=== PATIENT | female | born 1940 | race Caucasian/White ===

== ENCOUNTER → 2017-09-07 | Outpatient (CLI) | payer MEDICARE ==
[~2017-09-07] MED LIST: ALEN35TA6 PO; ASPI-515 PO; ATOR-2 PO; CEFD300C37 PO; DICL100G19 TP; DICL50TA; DOXE10CA PO; GABA-826; GABA300C10; HYDR12.53; LISI-170; LISI40TA PO; METH32TA PO; METO-93; METR500T PO; OMEP20CA9; OXYC15TA PO; TRAM100T2; TRAM50TA2 PO; TRIA0.2576; TRIA0.2576 PO
== END | disposition home or self-care (01) ==
LOC: CFH 10:40
PROVIDERS: ATTEND Obstetrics & Gynecology
DX: Z12.31 Encounter for screening mammogram for malignant neoplasm of breast (principal)
CPT/HCPCS: 77063; G0202

== ENCOUNTER → 2018-09-09 | Outpatient (CLI) | payer MEDICARE ==
[~2018-09-09] MED LIST changes: -TRAM100T2; +TRAM100T33
== END | disposition home or self-care (01) ==
LOC: LAB 10:47
PROVIDERS: ATTEND Nurse Practitioner
DX: M19.011 Primary osteoarthritis, right shoulder (principal); M19.012 Primary osteoarthritis, left shoulder

== ENCOUNTER 2019-01-17 11:30 | Inpatient (IN) | payer MEDICARE ==
[~2019-01-17] VITALS: Ht 157.5 cm; Wt 81.7 kg
[~2019-01-17 11:30] MED LIST changes: -GABA300C10; +GABA300C10 PO; +HYDR12.517; +HYDR12.517 PO; -HYDR12.53; -OMEP20CA9; +OMEP20CA9 PO
[2019-01-17] MEDS ORDERED: SODIUM CHLORIDE 0.9% 1,000ML IVBOLUS ONE (12:00)
[2019-01-17] MEDS ORDERED: SODIUM CHLORIDE FLUSH 10ML SYR IVF ONE (12:00)
[2019-01-17] MEDS ORDERED: SODIUM CHLORIDE 0.9%, 500ML IVBOLUS ONE (12:30)
[2019-01-17 12:40] LABS: BASOPHILS % (AUTO) 0 % (0-1); EOSINOPHILS # (AUTO) 0.03 x10^3/uL (0-0.4); EOSINOPHILS % (AUTO) 0 % (1-7); LYMPHOCYTES % (AUTO) 7 % (22-44); MD NO; MEAN CORPUSCULAR HEMOGLOBIN 31.2 pg (27.0-34.8); MEAN CORPUSCULAR HGB CONC 33.7 g/dL (32.4-35.8); MEAN CORPUSCULAR VOLUME 92.5 fL (80-100); MEAN PLATELET VOLUME 8.2 fL (7.4-10.4); MONOCYTES # (AUTO) 0.53 x10^3/uL (0.2-0.8); MONOCYTES % (AUTO) 7 % (2-9); NEUTROPHILS % (AUTO) 86 % (42-75); PLATELET COUNT 191 x10^3/uL (130-400); RED BLOOD COUNT 4.38 x10^6/uL (3.82-5.3); RED CELL DISTRIBUTION WIDTH 13.6 % (9.6-15.2)
--- NOTE | 2019-01-17 12:44 | NUR ---
LAB AT FOR BLOOD CULTURE DRAW
[2019-01-17 12:52] LABS: ALBUMIN 3.3 g/dL (3.4-5.0); ANION GAP 5 mmol/L (5-15); CALCIUM 8.9 mg/dL (8.5-10.1); CHLORIDE 107 mmol/L (98-107)
[2019-01-17 12:54] LABS: MICROSCOPIC AUTO
[2019-01-17 12:55] LABS: ALANINE AMINOTRANSFERASE 33 U/L (12-78); ALKALINE PHOSPHATASE 84 U/L (45-117); BILIRUBIN,TOTAL 0.6 mg/dL (0.2-1.0); CREATININE 0.77 mg/dL (0.55-1.02); TOTAL PROTEIN 6.8 g/dL (6.4-8.2)
[2019-01-17 12:57] LABS: CULTURE INDICATED? YES
--- NOTE | 2019-01-17 13:03 | NUR ---
PER REPORT, EMS GAVE PT 1000 MG TYLENOL PO AND 4 MG ZOFRAN.
[2019-01-17 13:18] LABS: RAPID INFLUENZA A Negative (Negative); RAPID INFLUENZA B Negative (Negative)
--- NOTE | 2019-01-17 13:19 | NUR ---
AT EXPLAINING RESULTS
[2019-01-17] MEDS ORDERED: CEFTRIAXONE PMX 1GM/50ML 50 ML IV ONE (13:30)
[2019-01-17] MEDS ORDERED: CEFTRIAXONE PMX 1GM/50ML 50 ML ONE (13:32)
[2019-01-17] MEDS ORDERED: SODIUM CHLORIDE 0.9% 1,000 ML IV SCH (15:40)
[2019-01-17] MEDS ORDERED: GUAIFENESIN/DM 200-20MG, 10ML UDC PO PRN (16:00)
[2019-01-17] MEDS ORDERED: hydrALAzine 20 MG/ML, 1ML IVPush PRN (16:00)
[2019-01-17] MEDS ORDERED: POTASSIUM CHLORIDE 20 MEQ TAB.ER.PRT PO ONE (16:00)
[2019-01-17] MEDS ORDERED: ACETAMINOPHEN 325 MG TABLET PO PRN (16:00)
[2019-01-17] MEDS ORDERED: ONDANSETRON 2MG/ML, 2ML IVPush PRN (16:00)
[2019-01-17] MEDS: GABAPENTIN 300 MG CAPSULE PO SCH ×2 (17:26→20:59)
[2019-01-17] MEDS: ENOXAPARIN 40 MG/0.4 ML SQ SCH (17:30)
[2019-01-17 18:27] VITALS: BP 109/70
[2019-01-17 20:11] VITALS: BP 95/59
[2019-01-17] MEDS ORDERED: HYDR-3240 PO (20:25)
[2019-01-17] MEDS: HYDROcodone/APAP 5/325 TABLET PO PRN (20:59)
[2019-01-17] MEDS ORDERED: DOCUSATE 100 MG CAPSULE PO PRN (21:00)
[2019-01-17] MEDS ORDERED: ZOLPIDEM 5MG TABLET PO PRN (21:00)
[2019-01-17] MEDS: SODIUM CHLORIDE NASAL SPRAY 45ML BOTTLE NAS PRN (21:38)
[2019-01-18] MEDS: HYDROcodone/APAP 5/325 TABLET PO PRN ×5 (01:31→21:26)
[2019-01-18] MEDS: SODIUM CHLORIDE NASAL SPRAY 45ML BOTTLE NAS PRN (01:32)
[2019-01-18 01:40] VITALS: BP 115/68
[2019-01-18 05:04] LABS: ANION GAP 3 mmol/L (5-15); CALCIUM 8.2 mg/dL (8.5-10.1); CHLORIDE 112 mmol/L (98-107)
[2019-01-18 05:06] LABS: CREATININE 0.57 mg/dL (0.55-1.02)
[2019-01-18 05:12] LABS: BASOPHILS # (AUTO) 0.02 x10^3/uL (0-0.1); BASOPHILS % (AUTO) 0 % (0-1); EOSINOPHILS # (AUTO) 0.03 x10^3/uL (0-0.4); EOSINOPHILS % (AUTO) 0 % (1-7); LYMPHOCYTES # (AUTO) 1.38 x10^3/uL (1-3.4); LYMPHOCYTES % (AUTO) 22 % (22-44); MD NO; MEAN CORPUSCULAR HGB CONC 33.6 g/dL (32.4-35.8); MEAN CORPUSCULAR VOLUME 92.3 fL (80-100); MEAN PLATELET VOLUME 8.7 fL (7.4-10.4); MONOCYTES # (AUTO) 0.48 x10^3/uL (0.2-0.8); MONOCYTES % (AUTO) 8 % (2-9); NEUTROPHILS # (AUTO) 4.34 x10^3/uL (1.8-6.8); NEUTROPHILS % (AUTO) 69 % (42-75); PLATELET COUNT 177 x10^3/uL (130-400); RED BLOOD COUNT 3.88 x10^6/uL (3.82-5.3); RED CELL DISTRIBUTION WIDTH 13.8 % (9.6-15.2)
[2019-01-18] MEDS: OMEPRAZOLE 20 MG CAPSULE.DR PO SCH (05:35)
[2019-01-18 07:39] VITALS: BP 110/68
[2019-01-18] MEDS: GABAPENTIN 300 MG CAPSULE PO SCH ×3 (09:06→21:26)
[2019-01-18] MEDS: ATORVASTATIN 80 MG TABLET PO SCH (09:06)
[2019-01-18] MEDS: HYDROCHLOROTHIAZIDE 12.5 MG CAPSULE PO SCH (09:06)
[2019-01-18] MEDS: ASPIRIN 81 MG TABLET EC PO SCH (09:07)
[2019-01-18] MEDS: LISINOPRIL 20 MG TABLET PO SCH (09:07)
[2019-01-18 12:20] VITALS: BP 122/79
[2019-01-18] MEDS: CEFTRIAXONE PMX 1GM/50ML 50 ML IV SCH (12:56)
[2019-01-18] MEDS ORDERED: SODIUM CHLORIDE 0.9% 1,000 ML IV SCH (15:40)
[2019-01-18] MEDS: ENOXAPARIN 40 MG/0.4 ML SQ SCH (17:06)
[2019-01-18 19:34] VITALS: BP 126/72
[2019-01-18] MEDS: CALCIUM CARBONATE 500 MG TAB.CHEW PO PRN (21:26)
[2019-01-19 00:25] VITALS: BP 147/76
[2019-01-19] MEDS: HYDROcodone/APAP 5/325 TABLET PO PRN ×2 (06:31→14:05)
[2019-01-19] MEDS: OMEPRAZOLE 20 MG CAPSULE.DR PO SCH (06:31)
[2019-01-19 06:58] VITALS: BP 159/80
[2019-01-19] MEDS: ASPIRIN 81 MG TABLET EC PO SCH (10:01)
[2019-01-19] MEDS: GABAPENTIN 300 MG CAPSULE PO SCH (10:01)
[2019-01-19] MEDS: ATORVASTATIN 80 MG TABLET PO SCH (10:01)
[2019-01-19] MEDS: HYDROCHLOROTHIAZIDE 12.5 MG CAPSULE PO SCH (10:02)
[2019-01-19] MEDS: CALCIUM CARBONATE 500 MG TAB.CHEW PO PRN (10:02)
[2019-01-19] MEDS: LISINOPRIL 20 MG TABLET PO SCH (10:02)
[2019-01-19] MEDS ORDERED: AMPI500C2 PO (11:37)
[2019-01-19] MEDS: CEFTRIAXONE PMX 1GM/50ML 50 ML IV SCH (13:30)
[2019-01-19 13:34] VITALS: BP 130/76
== END 2019-01-19 13:40 | disposition home or self-care (01) | DRG 871 ==
LOC: ED 12:29 → EDIP 13:07 → 3NW 13:45
PROVIDERS: ADMIT Internal Medicine; ATTEND Internal Medicine
DX: A41.9 Sepsis, unspecified organism (principal); G93.41 Metabolic encephalopathy; N39.0 Urinary tract infection, site not specified; E87.2 Acidosis; B96.20 Unspecified Escherichia coli [E. coli] as the cause of diseases classified elsewhere; E78.5 Hyperlipidemia, unspecified; E87.6 Hypokalemia; F41.1 Generalized anxiety disorder; G89.29 Other chronic pain; I10 Essential (primary) hypertension; K21.9 Gastro-esophageal reflux disease without esophagitis; M19.90 Unspecified osteoarthritis, unspecified site; R65.20 Severe sepsis without septic shock; Z88.9 Allergy status to unspecified drugs, medicaments and biological substances; Z90.710 Acquired absence of both cervix and uterus; Z96.653 Presence of artificial knee joint, bilateral
CPT/HCPCS: 36415; 71045; 80048; 80053; 81001; 83605; 83690; 83735; 84145; 85025; 87040; 87077; 87086; 87186; 87400; G0378; J0696; J1650; J7030; J7040

== ENCOUNTER 2019-01-27 06:26 | Inpatient (IN) | payer MEDICARE ==
[~2019-01-27] VITALS: Ht 149.9 cm; Wt 82.0 kg
[~2019-01-27 06:26] MED LIST changes: +AMPI500C2 PO; +HYDR-3240 PO
[2019-01-27] MEDS ORDERED: SODIUM CHLORIDE FLUSH 10ML SYR IVF ONE (07:00)
--- NOTE | 2019-01-27 07:00 | NUR ---
BEDSIDE REPORT FROM NOHELIA RN, PT BIB [facility] FOR N/V, GIVEN ZOFRAN 8MG AND 500CC NS. STRAIGHT CATH UA SENT. PT RESTING IN GURNEY WITH FAMILY AT BEDSIDE, PT ON BEDPAN. CALL LIGHT WITHIN REACH
[2019-01-27 07:24] LABS: BASOPHILS # (AUTO) 0.01 x10^3/uL (0-0.1); BASOPHILS % (AUTO) 0 % (0-1); EOSINOPHILS # (AUTO) 0.07 x10^3/uL (0-0.4); EOSINOPHILS % (AUTO) 1 % (1-7); LYMPHOCYTES # (AUTO) 0.55 x10^3/uL (1-3.4); LYMPHOCYTES % (AUTO) 5 % (22-44); MD NO; MEAN CORPUSCULAR HEMOGLOBIN 30.6 pg (27.0-34.8); MEAN CORPUSCULAR HGB CONC 33.5 g/dL (32.4-35.8); MEAN CORPUSCULAR VOLUME 91.4 fL (80-100); MEAN PLATELET VOLUME 9.1 fL (7.4-10.4); MONOCYTES # (AUTO) 0.26 x10^3/uL (0.2-0.8); MONOCYTES % (AUTO) 2 % (2-9); NEUTROPHILS # (AUTO) 9.86 x10^3/uL (1.8-6.8); NEUTROPHILS % (AUTO) 92 % (42-75); PLATELET COUNT 210 x10^3/uL (130-400); RED BLOOD COUNT 4.65 x10^6/uL (3.82-5.3); RED CELL DISTRIBUTION WIDTH 13.2 % (9.6-15.2)
[2019-01-27 07:25] LABS: MICROSCOPIC NOT IND
[2019-01-27 07:26] LABS: ALANINE AMINOTRANSFERASE 36 U/L (12-78); ALBUMIN 3.3 g/dL (3.4-5.0); ANION GAP 6 mmol/L (5-15); CHLORIDE 110 mmol/L (98-107); CREATININE 0.88 mg/dL (0.55-1.02)
[2019-01-27 07:28] LABS: CULTURE INDICATED? NO
[2019-01-27 07:29] LABS: ALKALINE PHOSPHATASE 101 U/L (45-117); BILIRUBIN,TOTAL 0.8 mg/dL (0.2-1.0); TOTAL PROTEIN 6.9 g/dL (6.4-8.2)
[2019-01-27] MEDS ORDERED: ONDANSETRON ODT 4 MG PO ONE (07:30)
[2019-01-27] MEDS ORDERED: ACETAMINOPHEN 500 MG TABLET PO ONE (07:30)
[2019-01-27] MEDS ORDERED: PIPERACILLIN/TAZO/PMX 3.375GM 50 ML ONE (07:41)
[2019-01-27] MEDS ORDERED: ACETAMINOPHEN 500 MG TABLET ONE (07:41)
[2019-01-27] MEDS ORDERED: PIPERACILLIN/TAZO/PMX 3.375GM 50 ML IV ONE (08:00)
--- NOTE | 2019-01-27 08:00 | NUR ---
PT RESTING IN GURNEY WITH FAMILY AT BEDSIDE, ABX GIVEN AFTER BC DRAWN, PT REQUESTING BEDPAN AGAIN. MED REC UPDATED
[2019-01-27] MEDS ORDERED: POTA99TA2 PO (08:35)
[2019-01-27] MEDS ORDERED: PROM25TA10 PO (08:35)
[2019-01-27] MEDS ORDERED: MULT-658 PO (08:35)
[2019-01-27] MEDS ORDERED: CHOL10003 PO (08:35)
[2019-01-27] MEDS ORDERED: CALCIUM PO (08:35)
[2019-01-27] MEDS ORDERED: OMEG-91 PO (08:35)
[2019-01-27] MEDS ORDERED: LUTE20CA2 PO (08:35)
[2019-01-27] MEDS ORDERED: TRAZ50TA66 PO (08:35)
[2019-01-27 08:45] LABS: RAPID INFLUENZA A Negative (Negative); RAPID INFLUENZA B Negative (Negative)
--- NOTE | 2019-01-27 09:05 | NUR ---
PT RESTING IN PATRICIA UPDATED ON POC, AWAITING BED ASSIGNMENT. VSS.
--- NOTE | 2019-01-27 09:57 | NUR ---
REPORT GIVEN TO LISBET LYN
[2019-01-27] MEDS ORDERED: DOCUSATE 100 MG CAPSULE PO PRN (11:00)
[2019-01-27] MEDS ORDERED: ONDANSETRON 2MG/ML, 2ML IVPush PRN (11:00)
[2019-01-27] MEDS ORDERED: BISACODYL 10 MG SUPP PR PRN (11:00)
[2019-01-27] MEDS ORDERED: PROMETHAZINE 25MG TABLET PO PRN (11:00)
[2019-01-27] MEDS ORDERED: ZOLPIDEM 5MG TABLET PO PRN (11:00)
[2019-01-27] MEDS ORDERED: POLYETHYLENE GLYCOL 17 GM PACKET PO PRN (11:00)
[2019-01-27] MEDS ORDERED: LABETALOL 5 MG/ML SYRINGE IVPush PRN ×2 (11:00)
[2019-01-27] MEDS ORDERED: ONDANSETRON ODT 4 MG PO PRN (11:00)
[2019-01-27] MEDS ORDERED: GUAIFENESIN/DM 200-20MG, 10ML UDC PO PRN (11:00)
[2019-01-27] MEDS ORDERED: hydrALAzine 20 MG/ML, 1ML IVPush PRN (11:00)
[2019-01-27 11:41] LABS: FREE T4 (FREE THYROXINE) 1.08 ng/dL (0.76-1.46); THYROID STIMULATING HORMONE 0.426 mIU/L (0.358-3.740)
[2019-01-27 11:55] LABS: HCT (SEDRATE) 42.5 % (34.6-47.8)
[2019-01-27] MEDS: LACTATED RINGERS 1,000 ML IV SCH (11:56)
[2019-01-27] MEDS: ENOXAPARIN 40 MG/0.4 ML SQ SCH (11:58)
[2019-01-27] MEDS ORDERED: PIPERACILLIN/TAZO/PMX 3.375GM 50 ML IV SCH (12:00)
[2019-01-27 13:58] VITALS: BP 98/64
[2019-01-27] MEDS: PIPERACILLIN/TAZO/PMX 3.375GM 50 ML IV SCH ×2 (16:45→22:42)
[2019-01-27] MEDS: GABAPENTIN 400 MG CAPSULE PO SCH ×2 (16:45→20:35)
[2019-01-27 19:16] VITALS: BP 95/60
[2019-01-27] MEDS: TRAZODONE 50MG TABLET PO SCH (20:35)
[2019-01-27] MEDS: FAMOTIDINE 20 MG TABLET PO SCH (20:35)
[2019-01-27] MEDS: ATORVASTATIN 80 MG TABLET PO SCH (20:35)
[2019-01-27] MEDS: HYDROcodone/APAP 5/325 TABLET PO PRN (20:43)
[2019-01-28 00:34] VITALS: BP 100/60
[2019-01-28] MEDS: LACTATED RINGERS 1,000 ML IV SCH ×3 (00:45→15:21)
[2019-01-28] MEDS: PIPERACILLIN/TAZO/PMX 3.375GM 50 ML IV SCH ×4 (04:30→22:20)
[2019-01-28] MEDS ORDERED: ALENDRONATE 35 MG TABLET PO SCH (06:30)
[2019-01-28 06:58] LABS: MEAN CORPUSCULAR HEMOGLOBIN 30.6 pg (27.0-34.8); MEAN CORPUSCULAR HGB CONC 32.9 g/dL (32.4-35.8); MEAN CORPUSCULAR VOLUME 93.1 fL (80-100); MEAN PLATELET VOLUME 9.2 fL (7.4-10.4); PLATELET COUNT 201 x10^3/uL (130-400); RED BLOOD COUNT 3.94 x10^6/uL (3.82-5.3); RED CELL DISTRIBUTION WIDTH 13.8 % (9.6-15.2)
[2019-01-28 07:07] LABS: ANION GAP 6 mmol/L (5-15); CALCIUM 8.3 mg/dL (8.5-10.1); CHLORIDE 107 mmol/L (98-107)
[2019-01-28 07:10] LABS: CREATININE 0.74 mg/dL (0.55-1.02)
[2019-01-28 07:56] VITALS: BP 132/67
[2019-01-28] MEDS: FAMOTIDINE 20 MG TABLET PO SCH ×2 (08:24→20:13)
[2019-01-28] MEDS: OMEPRAZOLE 20 MG CAPSULE.DR PO SCH (08:24)
[2019-01-28] MEDS: OMEGA-3/FISH OIL CAPSULE PO SCH (08:24)
[2019-01-28] MEDS: GABAPENTIN 400 MG CAPSULE PO SCH ×3 (08:24→20:13)
[2019-01-28 08:25] LABS: BASOPHILS # (AUTO) 0.04 x10^3/uL (0-0.1); BASOPHILS % (AUTO) 0 % (0-1); EOSINOPHILS # (AUTO) 0.19 x10^3/uL (0-0.4); EOSINOPHILS % (AUTO) 1 % (1-7); LYMPHOCYTES # (AUTO) 2.14 x10^3/uL (1-3.4); LYMPHOCYTES % (AUTO) 11 % (22-44); MD SCAN; MONOCYTES # (AUTO) 0.94 x10^3/uL (0.2-0.8); MONOCYTES % (AUTO) 5 % (2-9); NEUTROPHILS # (AUTO) 16.13 x10^3/uL (1.8-6.8); NEUTROPHILS % (AUTO) 83 % (42-75)
[2019-01-28] MEDS: MULTIVITAMIN 1 TABLET PO SCH (08:25)
[2019-01-28] MEDS: ASPIRIN 81 MG TABLET EC PO SCH (08:25)
[2019-01-28] MEDS: CALCIUM CARBONATE 500 MG TAB.CHEW PO SCH (08:25)
[2019-01-28] MEDS: HYDROCHLOROTHIAZIDE 25 MG TABLET PO SCH (08:25)
[2019-01-28] MEDS: CHOLECALCIFEROL 1,000 UNIT TABLET PO SCH (08:25)
[2019-01-28] MEDS: LISINOPRIL 20 MG TABLET PO SCH (08:25)
[2019-01-28] MEDS: DICLOFENAC SODIUM 100 GM TP SCH (08:28)
[2019-01-28] MEDS ORDERED: TEMPLATE NON-FORMULARY MED. (Lutein** 20 MG) PO SCH (09:00)
[2019-01-28] MEDS: HYDROcodone/APAP 5/325 TABLET PO PRN (09:02)
[2019-01-28 12:59] VITALS: BP 88/60
[2019-01-28 15:18] VITALS: BP 102/62
[2019-01-28] MEDS: ENOXAPARIN 40 MG/0.4 ML SQ SCH (15:20)
[2019-01-28 19:07] VITALS: BP 107/68
[2019-01-28] MEDS: ACETAMINOPHEN 325 MG TABLET PO PRN (20:13)
[2019-01-28] MEDS: ATORVASTATIN 80 MG TABLET PO SCH (20:13)
[2019-01-28] MEDS: TRAZODONE 50MG TABLET PO SCH (20:13)
[2019-01-29] MEDS: ACETAMINOPHEN 325 MG TABLET PO PRN ×4 (00:25→21:29)
[2019-01-29 00:43] VITALS: BP 102/69
[2019-01-29] MEDS: PIPERACILLIN/TAZO/PMX 3.375GM 50 ML IV SCH ×4 (04:31→22:55)
[2019-01-29 05:55] LABS: ANION GAP 6 mmol/L (5-15); CHLORIDE 108 mmol/L (98-107); CREATININE 0.81 mg/dL (0.55-1.02)
[2019-01-29 06:02] LABS: BASOPHILS # (AUTO) 0.05 x10^3/uL (0-0.1); BASOPHILS % (AUTO) 0 % (0-1); EOSINOPHILS # (AUTO) 0.16 x10^3/uL (0-0.4); EOSINOPHILS % (AUTO) 1 % (1-7); LYMPHOCYTES # (AUTO) 1.52 x10^3/uL (1-3.4); LYMPHOCYTES % (AUTO) 11 % (22-44); MD NO; MEAN CORPUSCULAR HEMOGLOBIN 31.1 pg (27.0-34.8); MEAN CORPUSCULAR HGB CONC 33.9 g/dL (32.4-35.8); MEAN CORPUSCULAR VOLUME 91.5 fL (80-100); MEAN PLATELET VOLUME 9.3 fL (7.4-10.4); MONOCYTES # (AUTO) 0.79 x10^3/uL (0.2-0.8); MONOCYTES % (AUTO) 6 % (2-9); NEUTROPHILS # (AUTO) 11.59 x10^3/uL (1.8-6.8); NEUTROPHILS % (AUTO) 82 % (42-75); PLATELET COUNT 230 x10^3/uL (130-400); RED BLOOD COUNT 4.12 x10^6/uL (3.82-5.3); RED CELL DISTRIBUTION WIDTH 13.7 % (9.6-15.2)
[2019-01-29 08:00] VITALS: BP 120/77
[2019-01-29] MEDS: DICLOFENAC SODIUM 100 GM TP SCH (09:00)
[2019-01-29] MEDS: GABAPENTIN 400 MG CAPSULE PO SCH ×3 (09:10→20:54)
[2019-01-29] MEDS: OMEPRAZOLE 20 MG CAPSULE.DR PO SCH (09:10)
[2019-01-29] MEDS: FAMOTIDINE 20 MG TABLET PO SCH ×2 (09:11→20:54)
[2019-01-29] MEDS: OMEGA-3/FISH OIL CAPSULE PO SCH (09:11)
[2019-01-29] MEDS: CHOLECALCIFEROL 1,000 UNIT TABLET PO SCH (09:11)
[2019-01-29] MEDS: ASPIRIN 81 MG TABLET EC PO SCH (09:11)
[2019-01-29] MEDS: CALCIUM CARBONATE 500 MG TAB.CHEW PO SCH (09:11)
[2019-01-29] MEDS: HYDROCHLOROTHIAZIDE 25 MG TABLET PO SCH (09:11)
[2019-01-29] MEDS: MULTIVITAMIN 1 TABLET PO SCH (09:11)
[2019-01-29] MEDS: LISINOPRIL 20 MG TABLET PO SCH (09:12)
[2019-01-29 13:50] VITALS: BP 124/79
[2019-01-29] MEDS: ENOXAPARIN 40 MG/0.4 ML SQ SCH (17:11)
[2019-01-29 19:43] VITALS: BP 143/71
[2019-01-29] MEDS: TRAZODONE 50MG TABLET PO SCH (20:54)
[2019-01-29] MEDS: ATORVASTATIN 80 MG TABLET PO SCH (20:54)
[2019-01-30 01:18] VITALS: BP 133/76
[2019-01-30] MEDS: PIPERACILLIN/TAZO/PMX 3.375GM 50 ML IV SCH ×2 (04:33→11:12)
[2019-01-30 06:03] LABS: BASOPHILS # (AUTO) 0.03 x10^3/uL (0-0.1); BASOPHILS % (AUTO) 0 % (0-1); EOSINOPHILS # (AUTO) 0.16 x10^3/uL (0-0.4); EOSINOPHILS % (AUTO) 2 % (1-7); LYMPHOCYTES # (AUTO) 1.62 x10^3/uL (1-3.4); LYMPHOCYTES % (AUTO) 16 % (22-44); MD NO; MEAN CORPUSCULAR HEMOGLOBIN 31.2 pg (27.0-34.8); MEAN CORPUSCULAR HGB CONC 34.2 g/dL (32.4-35.8); MEAN CORPUSCULAR VOLUME 91.1 fL (80-100); MEAN PLATELET VOLUME 8.8 fL (7.4-10.4); MONOCYTES # (AUTO) 0.63 x10^3/uL (0.2-0.8); MONOCYTES % (AUTO) 6 % (2-9); NEUTROPHILS # (AUTO) 7.81 x10^3/uL (1.8-6.8); NEUTROPHILS % (AUTO) 76 % (42-75); PLATELET COUNT 226 x10^3/uL (130-400); RED BLOOD COUNT 4.06 x10^6/uL (3.82-5.3); RED CELL DISTRIBUTION WIDTH 13.3 % (9.6-15.2)
[2019-01-30 06:10] LABS: ANION GAP 6 mmol/L (5-15); CALCIUM 9.1 mg/dL (8.5-10.1); CHLORIDE 110 mmol/L (98-107)
[2019-01-30 06:11] LABS: CREATININE 0.66 mg/dL (0.55-1.02)
[2019-01-30 08:10] VITALS: BP 144/81
[2019-01-30] MEDS: DICLOFENAC SODIUM 100 GM TP SCH (09:00)
[2019-01-30] MEDS: OMEGA-3/FISH OIL CAPSULE PO SCH (09:03)
[2019-01-30] MEDS: ASPIRIN 81 MG TABLET EC PO SCH (09:03)
[2019-01-30] MEDS: GABAPENTIN 400 MG CAPSULE PO SCH (09:03)
[2019-01-30] MEDS: FAMOTIDINE 20 MG TABLET PO SCH (09:03)
[2019-01-30] MEDS: CHOLECALCIFEROL 1,000 UNIT TABLET PO SCH (09:03)
[2019-01-30] MEDS: HYDROCHLOROTHIAZIDE 25 MG TABLET PO SCH (09:04)
[2019-01-30] MEDS: MULTIVITAMIN 1 TABLET PO SCH (09:04)
[2019-01-30] MEDS: OMEPRAZOLE 20 MG CAPSULE.DR PO SCH (09:04)
[2019-01-30] MEDS: LISINOPRIL 20 MG TABLET PO SCH (09:04)
[2019-01-30] MEDS: CALCIUM CARBONATE 500 MG TAB.CHEW PO SCH (09:04)
[2019-01-30] MEDS: ACETAMINOPHEN 325 MG TABLET PO PRN (09:26)
[2019-01-30] MEDS ORDERED: POTASSIUM CHLORIDE 20 MEQ TAB.ER.PRT PO ONE (09:30)
[2019-01-30] MEDS ORDERED: AMOX1TAB64 PO (12:05)
[2019-01-30] MEDS ORDERED: FAMO20TA7 PO (12:05)
[2019-01-30 13:02] VITALS: BP 156/79
== END 2019-01-30 15:35 | disposition home or self-care (01) | DRG 871 ==
LOC: ED 07:11 → EDIP 08:24 → 4EST 11:11 → DCLOUNGE 01-30 15:20
PROVIDERS: ADMIT Hospitalist; ATTEND Hospitalist
PROC: 0T9B70Z Drainage of Bladder with Drainage Device, Via Natural or Artificial Opening (ICD-10-PCS; principal; 2019-01-27)
DX: A41.9 Sepsis, unspecified organism (principal); J69.0 Pneumonitis due to inhalation of food and vomit; G93.41 Metabolic encephalopathy; Z88.5 Allergy status to narcotic agent; Z88.2 Allergy status to sulfonamides; Z88.8 Allergy status to other drugs, medicaments and biological substances; Z91.048 Other nonmedicinal substance allergy status; E78.5 Hyperlipidemia, unspecified; F41.9 Anxiety disorder, unspecified; I10 Essential (primary) hypertension; K21.9 Gastro-esophageal reflux disease without esophagitis; M19.90 Unspecified osteoarthritis, unspecified site; R65.20 Severe sepsis without septic shock; Z87.440 Personal history of urinary (tract) infections; Z88.9 Allergy status to unspecified drugs, medicaments and biological substances; Z90.49 Acquired absence of other specified parts of digestive tract; Z90.710 Acquired absence of both cervix and uterus; Z96.653 Presence of artificial knee joint, bilateral
CPT/HCPCS: 36415; 71045; 74230; 80048; 80053; 81003; 83605; 83690; 84132; 84439; 84443; 85025; 85651; 87040; 87070; 87205; 87400; 93005; 96374; G0378; J1650; J2543; J7120

== ENCOUNTER 2019-06-27 08:00 | Outpatient (CLI) | payer MEDICARE | END 2019-06-27 23:59 | disposition home or self-care (01) | LOC: RAD 08:00 | PROVIDERS: ATTEND Physician Assistant Medical | DX: R10.12 Left upper quadrant pain (principal) | CPT/HCPCS: 76700 ==

== ENCOUNTER 2019-10-12 04:59 | Emergency (ER) | payer MEDICARE ==
[~2019-10-12] VITALS: Ht 149.9 cm; Wt 84.4 kg
[~2019-10-12 04:59] MED LIST changes: +ALEN35TA13 PO; -ALEN35TA6 PO; +AMOX1TAB64 PO; +CALCIUM PO; +CHOL10003 PO; +FAMO20TA7 PO; +LUTE20CA2 PO; +MULT-658 PO; +OMEG-91 PO; +POTA99TA2 PO; +PROM25TA10 PO; +TRAZ50TA66 PO
--- NOTE | 2019-10-12 05:08 | NUR ---
PT GIVEN WATER PER REQUEST. PT DENIES FURTHER NEEDS AT THIS TIME. CALL LIGHT ON LAP. AWAITING CT.
--- NOTE | 2019-10-12 05:25 | NUR ---
PT RETURNS FROM CT AT THIS TIME.
--- NOTE | 2019-10-12 05:50 | NUR ---
PT PASSED AMBULATION TRIAL
[2019-10-12 06:24] VITALS: BP 112/74
== END 2019-10-12 06:26 | disposition home or self-care (01) ==
LOC: ED 06:20
DX: M48.061 Spinal stenosis, lumbar region without neurogenic claudication (principal); M54.16 Radiculopathy, lumbar region; E78.5 Hyperlipidemia, unspecified; I10 Essential (primary) hypertension; Z90.49 Acquired absence of other specified parts of digestive tract; Z90.89 Acquired absence of other organs; Z96.653 Presence of artificial knee joint, bilateral
CPT/HCPCS: 72131; 99284

== ENCOUNTER 2019-10-12 13:18 | Observation (INO) | payer MEDICARE ==
[~2019-10-12] VITALS: Ht 134.6 cm; Wt 87.6 kg
[2019-10-12] MEDS ORDERED: SODIUM CHLORIDE FLUSH 10ML SYR IVF ONE (14:00)
--- NOTE | 2019-10-12 14:00 | NUR ---
PT PROVIDED WITH WARM BLANKETS PER REQUEST. URINE COLLECTED AND SENT. LAB AT BEDSIDE. PT DENIES ANY FURTHER NEEDS OR CONCERNS AT THIS TIME. CALL LIGHT IN REACH, CONTINUES AT BEDSIDE.
[2019-10-12 14:15] LABS: MEAN CORPUSCULAR HEMOGLOBIN 30.7 pg (27.0-34.8); MEAN CORPUSCULAR HGB CONC 33.5 g/dL (32.4-35.8); MEAN CORPUSCULAR VOLUME 91.8 fL (80-100); MEAN PLATELET VOLUME 8.8 fL (7.4-10.4); PLATELET COUNT 199 x10^3/uL (130-400); RED BLOOD COUNT 4.39 x10^6/uL (3.82-5.3); RED CELL DISTRIBUTION WIDTH 14.1 % (9.6-15.2)
[2019-10-12 14:23] LABS: MICROSCOPIC AUTO
[2019-10-12 14:26] LABS: ALANINE AMINOTRANSFERASE 58 U/L (12-78); ALBUMIN 3.2 g/dL (3.4-5.0); CALCIUM 9.1 mg/dL (8.5-10.1); CHLORIDE 109 mmol/L (98-107); CREATININE 1.02 mg/dL (0.55-1.02)
[2019-10-12 14:29] LABS: ALKALINE PHOSPHATASE 101 U/L (45-117); TOTAL PROTEIN 6.6 g/dL (6.4-8.2)
[2019-10-12 14:31] LABS: CULTURE INDICATED? YES
[2019-10-12 14:33] LABS: ANION GAP 4 mmol/L (5-15)
[2019-10-12 14:36] LABS: MD YES
[2019-10-12 14:39] LABS: <PLATELET ESTIMATE> ADEQUATE; <PLT MORPHOLOGY> NORMAL PLT MORPH; <RBC MORPHOLOGY> NORMAL; BAND#(MANUAL) 1.22 x10^3/uL; BANDS%(MANUAL) 7 % (0-7); EOS#(MANUAL) 0.35 x10^3/uL (0.0-0.4); EOS% (MANUAL) 2 % (1-7); LYMPH#(MANUAL) 2.09 x10^3/uL (1-3.4); LYMPHS% (MANUAL) 12 % (22-44); MONOS#(MANUAL) 0.17 x10^3/uL (0.3-2.7); MONOS% (MANUAL) 1 % (2-9); SEG#(MANUAL) 13.57 x10^3/uL (1.8-6.8); SEGS% (MANUAL) 78 % (42-75)
[2019-10-12] MEDS ORDERED: CEFTRIAXONE PMX 1GM/50ML 50 ML IV ONE (15:00)
[2019-10-12] MEDS ORDERED: SODIUM CHLORIDE 0.9% 1,000 ML IV ONE (15:00)
[2019-10-12] MEDS ORDERED: CEFTRIAXONE PMX 1GM/50ML 50 ML ONE (15:06)
[2019-10-12] MEDS ORDERED: ACETAMINOPHEN 325 MG TABLET PO PRN (16:00)
[2019-10-12 16:19] VITALS: BP 119/66
[2019-10-12] MEDS: GABAPENTIN 400 MG CAPSULE PO SCH ×2 (17:44→20:18)
[2019-10-12] MEDS: ENOXAPARIN 40 MG/0.4 ML SQ SCH (17:44)
[2019-10-12] MEDS: SODIUM CHLORIDE 0.9% 1,000 ML IV SCH (17:44)
[2019-10-12 18:50] VITALS: BP 138/71
[2019-10-12] MEDS: FAMOTIDINE 20 MG TABLET PO SCH (20:18)
[2019-10-12] MEDS: ATORVASTATIN 80 MG TABLET PO SCH (20:18)
[2019-10-13 00:44] VITALS: BP 113/73
[2019-10-13 05:29] LABS: ANION GAP 3 mmol/L (5-15); CALCIUM 8.4 mg/dL (8.5-10.1); CHLORIDE 110 mmol/L (98-107)
[2019-10-13 05:32] LABS: CREATININE 0.63 mg/dL (0.55-1.02)
[2019-10-13 05:33] LABS: BASOPHILS # (AUTO) 0.04 x10^3/uL (0-0.1); BASOPHILS % (AUTO) 0 % (0-1); EOSINOPHILS # (AUTO) 0.43 x10^3/uL (0-0.4); EOSINOPHILS % (AUTO) 4 % (1-7); LYMPHOCYTES # (AUTO) 2.03 x10^3/uL (1-3.4); LYMPHOCYTES % (AUTO) 17 % (22-44); MD NO; MEAN CORPUSCULAR HEMOGLOBIN 31.1 pg (27.0-34.8); MEAN CORPUSCULAR HGB CONC 33.1 g/dL (32.4-35.8); MEAN CORPUSCULAR VOLUME 94.2 fL (80-100); MEAN PLATELET VOLUME 9.9 fL (7.4-10.4); MONOCYTES # (AUTO) 0.62 x10^3/uL (0.2-0.8); MONOCYTES % (AUTO) 5 % (2-9); NEUTROPHILS # (AUTO) 9.11 x10^3/uL (1.8-6.8); NEUTROPHILS % (AUTO) 75 % (42-75); PLATELET COUNT 181 x10^3/uL (130-400); RED BLOOD COUNT 3.82 x10^6/uL (3.82-5.3); RED CELL DISTRIBUTION WIDTH 13.8 % (9.6-15.2)
[2019-10-13 07:23] VITALS: BP 113/69
[2019-10-13] MEDS ORDERED: POTASSIUM CHLORIDE 20 MEQ TAB.ER.PRT PO ONE ×2 (07:30→11:30)
[2019-10-13] MEDS: ASPIRIN 81 MG TABLET EC PO SCH (08:05)
[2019-10-13] MEDS: SENNA/DOCUSATE TABLET PO SCH (08:05)
[2019-10-13] MEDS: FAMOTIDINE 20 MG TABLET PO SCH (08:05)
[2019-10-13] MEDS: LISINOPRIL 40 MG TABLET PO SCH (08:06)
[2019-10-13] MEDS: GABAPENTIN 400 MG CAPSULE PO SCH ×3 (08:06→21:04)
[2019-10-13] MEDS: SODIUM CHLORIDE 0.9% 1,000 ML IV SCH ×4 (08:10→23:30)
[2019-10-13 12:30] VITALS: BP 123/81
[2019-10-13] MEDS: CEFTRIAXONE PMX 2GM/50ML 50 ML IV SCH (14:37)
[2019-10-13] MEDS: ENOXAPARIN 40 MG/0.4 ML SQ SCH (17:21)
[2019-10-13 19:37] VITALS: BP 136/74
[2019-10-13] MEDS: ATORVASTATIN 80 MG TABLET PO SCH (21:04)
[2019-10-13] MEDS ORDERED: HYDROcodone/APAP 5/325 TABLET ONE (23:10)
[2019-10-14 01:36] VITALS: BP 113/61
[2019-10-14 06:00] LABS: CHLORIDE 111 mmol/L (98-107)
[2019-10-14 06:13] LABS: BASOPHILS # (AUTO) 0.01 x10^3/uL (0-0.1); BASOPHILS % (AUTO) 0 % (0-1); EOSINOPHILS # (AUTO) 0.43 x10^3/uL (0-0.4); EOSINOPHILS % (AUTO) 6 % (1-7); LYMPHOCYTES # (AUTO) 1.61 x10^3/uL (1-3.4); LYMPHOCYTES % (AUTO) 21 % (22-44); MD NO; MEAN CORPUSCULAR HEMOGLOBIN 30.6 pg (27.0-34.8); MEAN CORPUSCULAR HGB CONC 32.8 g/dL (32.4-35.8); MEAN CORPUSCULAR VOLUME 93.5 fL (80-100); MEAN PLATELET VOLUME 9.8 fL (7.4-10.4); MONOCYTES # (AUTO) 0.63 x10^3/uL (0.2-0.8); MONOCYTES % (AUTO) 8 % (2-9); NEUTROPHILS # (AUTO) 5.03 x10^3/uL (1.8-6.8); NEUTROPHILS % (AUTO) 65 % (42-75); PLATELET COUNT 175 x10^3/uL (130-400); RED BLOOD COUNT 4.03 x10^6/uL (3.82-5.3); RED CELL DISTRIBUTION WIDTH 13.7 % (9.6-15.2)
[2019-10-14 06:15] LABS: ALANINE AMINOTRANSFERASE 38 U/L (12-78); ALBUMIN 2.8 g/dL (3.4-5.0); ALKALINE PHOSPHATASE 83 U/L (45-117); ANION GAP 6 mmol/L (5-15); BILIRUBIN,TOTAL 0.9 mg/dL (0.2-1.0); CALCIUM 8.6 mg/dL (8.5-10.1); CREATININE 0.67 mg/dL (0.55-1.02); TOTAL PROTEIN 6.1 g/dL (6.4-8.2)
[2019-10-14 07:05] VITALS: BP 157/83
[2019-10-14] MEDS: SODIUM CHLORIDE 0.9% 1,000 ML IV SCH ×2 (07:48→21:24)
[2019-10-14] MEDS: ONDANSETRON 2MG/ML, 2ML IVPush PRN ×2 (10:27→16:56)
[2019-10-14] MEDS: ASPIRIN 81 MG TABLET EC PO SCH (10:27)
[2019-10-14] MEDS: LISINOPRIL 40 MG TABLET PO SCH (10:27)
[2019-10-14] MEDS: FAMOTIDINE 20 MG TABLET PO SCH (10:27)
[2019-10-14] MEDS: GABAPENTIN 400 MG CAPSULE PO SCH ×3 (10:27→21:24)
[2019-10-14] MEDS: SENNA/DOCUSATE TABLET PO SCH (10:29)
[2019-10-14 12:28] VITALS: BP 144/82
[2019-10-14] MEDS ORDERED: OMNIPAQUE 350 MG/ML, 100ML BOTTLE ONE (13:32)
[2019-10-14] MEDS: CEFTRIAXONE PMX 2GM/50ML 50 ML IV SCH (15:28)
[2019-10-14] MEDS ORDERED: MAGNESIUM SULFATE PMX 2GM/50ML 50 ML IV ONE (16:00)
[2019-10-14] MEDS: GUAIFENESIN 200 MG TABLET PO PRN (16:56)
[2019-10-14] MEDS: ENOXAPARIN 40 MG/0.4 ML SQ SCH (18:01)
[2019-10-14 19:20] VITALS: BP 105/65
[2019-10-14] MEDS: ATORVASTATIN 80 MG TABLET PO SCH (21:24)
[2019-10-14] MEDS ORDERED: HYDROcodone/APAP 5/325 TABLET ONE (22:02)
[2019-10-15 01:53] VITALS: BP 112/69
[2019-10-15] MEDS ORDERED: HYDROcodone/APAP 5/325 TABLET ONE (04:56)
[2019-10-15] MEDS: SODIUM CHLORIDE 0.9% 1,000 ML IV SCH (05:03)
[2019-10-15 05:10] LABS: BASOPHILS # (AUTO) 0.03 x10^3/uL (0-0.1); BASOPHILS % (AUTO) 1 % (0-1); EOSINOPHILS # (AUTO) 0.34 x10^3/uL (0-0.4); EOSINOPHILS % (AUTO) 6 % (1-7); LYMPHOCYTES # (AUTO) 1.84 x10^3/uL (1-3.4); LYMPHOCYTES % (AUTO) 34 % (22-44); MD NO; MEAN CORPUSCULAR HEMOGLOBIN 30.2 pg (27.0-34.8); MEAN CORPUSCULAR HGB CONC 32.5 g/dL (32.4-35.8); MEAN PLATELET VOLUME 9.7 fL (7.4-10.4); MONOCYTES # (AUTO) 0.44 x10^3/uL (0.2-0.8); MONOCYTES % (AUTO) 8 % (2-9); NEUTROPHILS # (AUTO) 2.76 x10^3/uL (1.8-6.8); NEUTROPHILS % (AUTO) 51 % (42-75); PLATELET COUNT 167 x10^3/uL (130-400); RED BLOOD COUNT 3.78 x10^6/uL (3.82-5.3); RED CELL DISTRIBUTION WIDTH 13.4 % (9.6-15.2)
[2019-10-15 05:22] LABS: CHLORIDE 113 mmol/L (98-107)
[2019-10-15 05:27] LABS: ANION GAP 4 mmol/L (5-15); CALCIUM 8.1 mg/dL (8.5-10.1); CREATININE 0.56 mg/dL (0.55-1.02)
[2019-10-15] MEDS ORDERED: CEFD300C37 PO (06:41)
[2019-10-15] MEDS ORDERED: GUAI200T37 PO (06:41)
[2019-10-15 06:58] VITALS: BP 143/83
[2019-10-15] MEDS: GUAIFENESIN 200 MG TABLET PO PRN (08:24)
[2019-10-15] MEDS: SENNA/DOCUSATE TABLET PO SCH (08:24)
[2019-10-15] MEDS: GABAPENTIN 400 MG CAPSULE PO SCH (08:24)
[2019-10-15] MEDS: LISINOPRIL 40 MG TABLET PO SCH (08:24)
[2019-10-15] MEDS: CEFTRIAXONE PMX 2GM/50ML 50 ML IV SCH ×2 (08:24→09:20)
[2019-10-15] MEDS: FAMOTIDINE 20 MG TABLET PO SCH (08:24)
[2019-10-15] MEDS: ASPIRIN 81 MG TABLET EC PO SCH (08:24)
[2019-10-16] MEDS ORDERED: HYDR25TA6 PO (09:24)
[2019-10-16] MEDS ORDERED: ASPI-496 PO (09:26)
[2019-10-16] MEDS ORDERED: DICL100G19 TP (09:26)
[2019-10-16] MEDS ORDERED: PROM25TA10 PO (09:27)
== END 2019-10-15 14:36 | disposition home or self-care (01) ==
LOC: ED 14:13 → UNDOADMOB 14:44 → INTOOBSV 14:44 → EDIP 14:44 → 3N 16:00 → DCLOUNGE 10-15 14:15
PROVIDERS: ADMIT Internal Medicine Infectious Disease; ATTEND Hospitalist
DX: N39.0 Urinary tract infection, site not specified (principal); R41.0 Disorientation, unspecified; R53.1 Weakness; I10 Essential (primary) hypertension; K21.9 Gastro-esophageal reflux disease without esophagitis; D72.829 Elevated white blood cell count, unspecified; E87.6 Hypokalemia; R05 Cough; E78.5 Hyperlipidemia, unspecified; Z96.653 Presence of artificial knee joint, bilateral; Z79.82 Long term (current) use of aspirin; Z79.899 Other long term (current) drug therapy; R32 Unspecified urinary incontinence; Z87.440 Personal history of urinary (tract) infections
CPT/HCPCS: 36415; 70450; 71045; 74177; 76770; 80048; 80053; 81001; 83735; 84100; 85025; 87040; 87086; 93005; 96361; 96365; 96366; 96367; 96372; 96375; 96376; 97161; 99284; G0378; J0696; J1650; J2405; J3475; J7030; Q9967

== ENCOUNTER 2019-10-16 06:51 | Observation (INO) | payer MEDICARE ==
[~2019-10-16] VITALS: Ht 149.9 cm; Wt 83.3 kg
[~2019-10-16 06:51] MED LIST changes: +GUAI200T37 PO
--- NOTE | 2019-10-16 07:08 | NUR ---
FIRST CONTACT WITH PT. PT WAS DC FROM HERE YESTERDAY FOR UTI. "I NOW HAVE A BURNING STOMACH" PT C/O N/V/D WELL. PT DENIES DYSURIA/PAINFUL URINATION. PT'S AOX4. RESPS EVEN AND UNLABORED. BP/SPO2 MONITORS IN PLACE. CALL LIGHT WITHIN REACH. PT'S AT BEDSIDE.
[2019-10-16] MEDS ORDERED: SODIUM CHLORIDE FLUSH 10ML SYR IVF ONE (07:30)
[2019-10-16] MEDS ORDERED: ONDANSETRON 2MG/ML, 2ML IVPush ONE ×2 (07:30→08:30)
[2019-10-16] MEDS ORDERED: ONDANSETRON 2MG/ML, 2ML ONE ×2 (07:40→08:14)
--- NOTE | 2019-10-16 07:45 | NUR ---
PT MEDICATED PER EMAR. PT TOLERATED WELL.
--- NOTE | 2019-10-16 07:56 | NUR ---
PT AMB TO BR AND BACK TO ROOM WITH STEADY GAIT. UA SENT.
[2019-10-16] MEDS ORDERED: HYDROmorphone 1 MG/ML, 1ML VIAL ONE (08:14)
[2019-10-16] MEDS: HYDROmorphone 2 MG/ML, 1ML IVPush PRN ×2 (08:17→08:55)
--- NOTE | 2019-10-16 08:23 | NUR ---
PT MEDICATED PER EMAR FOR PAIN. PT TOLERATED WELL. PT'S AOX4. RESPS EVEN AND UNLABORED.
[2019-10-16 08:26] LABS: INTERNATIONAL NORMALIZED RATIO 0.93 (0.93-1.1); PROTHROMBIN TIME 9.8 Seconds (9.6-11.5)
[2019-10-16 08:29] LABS: ALANINE AMINOTRANSFERASE 48 U/L (12-78); ALBUMIN 3.6 g/dL (3.4-5.0); ANION GAP 8 mmol/L (5-15); CALCIUM 9.9 mg/dL (8.5-10.1); CHLORIDE 109 mmol/L (98-107); CREATININE 0.65 mg/dL (0.55-1.02)
[2019-10-16] MEDS ORDERED: HYDROmorphone 1 MG/ML, 1ML INJ IVPush PRN (08:30)
[2019-10-16 08:31] LABS: ALKALINE PHOSPHATASE 104 U/L (45-117); BILIRUBIN,TOTAL 0.7 mg/dL (0.2-1.0); TOTAL PROTEIN 7.6 g/dL (6.4-8.2)
[2019-10-16 08:32] LABS: MICROSCOPIC NOT IND
[2019-10-16 08:35] LABS: CULTURE INDICATED? NO
[2019-10-16] MEDS ORDERED: HYDROmorphone 2 MG/ML, 1ML ONE (08:37)
--- NOTE | 2019-10-16 08:38 | NUR ---
PT TO CT NOW.
[2019-10-16 08:48] LABS: MEAN CORPUSCULAR HEMOGLOBIN 30.4 pg (27.0-34.8); MEAN CORPUSCULAR HGB CONC 33.4 g/dL (32.4-35.8); MEAN CORPUSCULAR VOLUME 91.1 fL (80-100); MEAN PLATELET VOLUME 8.9 fL (7.4-10.4); PLATELET COUNT 212 x10^3/uL (130-400); RED BLOOD COUNT 4.49 x10^6/uL (3.82-5.3); RED CELL DISTRIBUTION WIDTH 13.1 % (9.6-15.2)
[2019-10-16 08:49] LABS: BASOPHILS # (AUTO) 0.02 x10^3/uL (0-0.1); BASOPHILS % (AUTO) 0 % (0-1); EOSINOPHILS # (AUTO) 0.12 x10^3/uL (0-0.4); EOSINOPHILS % (AUTO) 2 % (1-7); LYMPHOCYTES # (AUTO) 1.19 x10^3/uL (1-3.4); LYMPHOCYTES % (AUTO) 18 % (22-44); MD SCAN; MONOCYTES # (AUTO) 0.57 x10^3/uL (0.2-0.8); MONOCYTES % (AUTO) 9 % (2-9); NEUTROPHILS # (AUTO) 4.73 x10^3/uL (1.8-6.8); NEUTROPHILS % (AUTO) 71 % (42-75)
--- NOTE | 2019-10-16 08:53 | NUR ---
PT BACK TO ROOM AT THIS TIME.
--- NOTE | 2019-10-16 08:58 | NUR ---
Gabriel olson in ED - 10/16/19 at 0858 by DIOMEDES PT MEDICATED PER EMAR FOR PAIN. PT'S PAIN INOCENCIA
--- NOTE | 2019-10-16 08:58 | NUR ---
PT MEDICATED PER EMAR. PT TOLERATED WELL. PT'S PAIN LEVEL IS 8/10 AT THIS TIME.
[2019-10-16] MEDS ORDERED: HYDR25TA6 PO (09:24)
[2019-10-16] MEDS ORDERED: DICL100G19 TP (09:26)
[2019-10-16] MEDS ORDERED: ASPI-496 PO (09:26)
[2019-10-16] MEDS ORDERED: PROM25TA10 PO (09:27)
[2019-10-16] MEDS ORDERED: MAALOX/HYOSCYAMINE/LIDOCAINE 45 ML BTL ONE (09:30)
[2019-10-16] MEDS ORDERED: MAALOX/HYOSCYAMINE/LIDOCAINE 45 ML BTL PO ONE (09:30)
--- NOTE | 2019-10-16 09:31 | NUR ---
PT MEDICATED PER EMAR. PT TOLERATED WELL.
[2019-10-16] MEDS ORDERED: OMNIPAQUE 350 MG/ML, 100ML BOTTLE ONE (10:03)
--- NOTE | 2019-10-16 10:04 | NUR ---
REPORT GIVEN TO REI LYN. ALL QUESTIONS ANSWERED.
[2019-10-16] MEDS ORDERED: CALCIUM CARBONATE 500 MG TAB.CHEW PO PRN (10:30)
[2019-10-16] MEDS ORDERED: PANTOPRAZOLE 40 MG IV IVPush SCH (10:30)
[2019-10-16] MEDS ORDERED: PROMETHAZINE 25MG TABLET PO PRN (10:30)
[2019-10-16] MEDS ORDERED: HYDROcodone/APAP 5/325 TABLET PO PRN (10:30)
[2019-10-16] MEDS ORDERED: MAALOX/HYOSCYAMINE/LIDOCAINE 45 ML BTL PO PRN (10:30)
[2019-10-16 10:43] VITALS: BP 150/79
[2019-10-16 11:00] VITALS: BP 132/76
[2019-10-16] MEDS ORDERED: ACETAMINOPHEN 325 MG TABLET PO PRN (11:00)
[2019-10-16] MEDS ORDERED: GUAIFENESIN/DM 200-20MG, 10ML UDC PO PRN (11:00)
[2019-10-16] MEDS ORDERED: ONDANSETRON 2MG/ML, 2ML IVPush PRN (11:00)
[2019-10-16] MEDS ORDERED: ENALAPRILAT 1.25 MG/ML, 2ML IVPush PRN (11:00)
[2019-10-16] MEDS ORDERED: DOCUSATE 100 MG CAPSULE PO PRN (11:00)
[2019-10-16] MEDS ORDERED: ONDANSETRON ODT 4 MG PO PRN (11:00)
[2019-10-16] MEDS ORDERED: morphine SULFATE 10 MG/ML, 1ML IVPush PRN (11:00)
[2019-10-16] MEDS: ENOXAPARIN 40 MG/0.4 ML SQ SCH (12:00)
[2019-10-16] MEDS: CEFTRIAXONE PMX 2GM/50ML 50 ML IV SCH (12:00)
[2019-10-16] MEDS: SODIUM CHLORIDE 0.9% 1,000 ML IV SCH (12:01)
[2019-10-16 14:00] VITALS: BP 145/81
[2019-10-16 15:00] VITALS: BP 137/75
[2019-10-16] MEDS: GABAPENTIN 400 MG CAPSULE PO SCH ×2 (15:39→20:45)
[2019-10-16 20:15] VITALS: BP 142/93
[2019-10-16] MEDS: PANTOPROZOLE 40MG TABLET PO SCH (20:45)
[2019-10-16] MEDS ORDERED: ATORVASTATIN 80 MG TABLET PO SCH (21:00)
[2019-10-16] MEDS ORDERED: TRAZODONE 50MG TABLET PO SCH (21:00)
[2019-10-16] MEDS ORDERED: FAMOTIDINE 20 MG TABLET PO SCH (21:00)
[2019-10-17] MEDS: SODIUM CHLORIDE 0.9% 1,000 ML IV SCH ×2 (00:43→09:17)
[2019-10-17 02:00] VITALS: BP 128/79
[2019-10-17 04:56] LABS: BASOPHILS # (AUTO) 0.03 x10^3/uL (0-0.1); BASOPHILS % (AUTO) 1 % (0-1); EOSINOPHILS # (AUTO) 0.32 x10^3/uL (0-0.4); EOSINOPHILS % (AUTO) 7 % (1-7); LYMPHOCYTES # (AUTO) 1.58 x10^3/uL (1-3.4); LYMPHOCYTES % (AUTO) 34 % (22-44); MD NO; MEAN CORPUSCULAR HEMOGLOBIN 30.6 pg (27.0-34.8); MEAN CORPUSCULAR HGB CONC 32.8 g/dL (32.4-35.8); MEAN CORPUSCULAR VOLUME 93.1 fL (80-100); MEAN PLATELET VOLUME 9.1 fL (7.4-10.4); MONOCYTES % (AUTO) 11 % (2-9); NEUTROPHILS # (AUTO) 2.17 x10^3/uL (1.8-6.8); NEUTROPHILS % (AUTO) 47 % (42-75); PLATELET COUNT 188 x10^3/uL (130-400); RED BLOOD COUNT 3.93 x10^6/uL (3.82-5.3); RED CELL DISTRIBUTION WIDTH 13.4 % (9.6-15.2)
[2019-10-17 05:05] LABS: ALBUMIN 2.9 g/dL (3.4-5.0); CALCIUM 8.8 mg/dL (8.5-10.1); CHLORIDE 110 mmol/L (98-107)
[2019-10-17 05:11] LABS: ALANINE AMINOTRANSFERASE 33 U/L (12-78); ALKALINE PHOSPHATASE 76 U/L (45-117); ANION GAP 4 mmol/L (5-15); BILIRUBIN,TOTAL 0.6 mg/dL (0.2-1.0); CREATININE 0.65 mg/dL (0.55-1.02); TOTAL PROTEIN 6.3 g/dL (6.4-8.2)
[2019-10-17] MEDS: PANTOPROZOLE 40MG TABLET PO SCH (05:36)
[2019-10-17 08:23] VITALS: BP 158/76
[2019-10-17] MEDS ORDERED: LISINOPRIL 40 MG TABLET PO SCH (09:00)
[2019-10-17] MEDS ORDERED: TEMPLATE NON-FORMULARY MED. (Lutein** 20 MG) PO SCH ×2 (09:00)
[2019-10-17] MEDS ORDERED: TEMPLATE NON-FORMULARY MED. (Potassium Gluconate** 595 MG) PO SCH (09:00)
[2019-10-17] MEDS ORDERED: CHOLECALCIFEROL 1,000 UNIT TABLET PO SCH (09:00)
[2019-10-17] MEDS ORDERED: TEMPLATE NON-FORMULARY MED. (Diclofenac Sodium (Voltaren) 1 APPLIC) HOMETP SCH (09:00)
[2019-10-17] MEDS ORDERED: OMEGA-3/FISH OIL CAPSULE PO SCH (09:00)
[2019-10-17] MEDS ORDERED: CALCIUM CARBONATE 500 MG TAB.CHEW PO SCH (09:00)
[2019-10-17] MEDS ORDERED: MULTIVITAMIN 1 TABLET PO SCH (09:00)
[2019-10-17] MEDS: GABAPENTIN 400 MG CAPSULE PO SCH (09:17)
[2019-10-17] MEDS: CEFTRIAXONE PMX 2GM/50ML 50 ML IV SCH (09:17)
[2019-10-17] MEDS: ENOXAPARIN 40 MG/0.4 ML SQ SCH (11:00)
[2019-10-17] MEDS ORDERED: CEFD300C37 PO (13:44)
[2019-10-17] MEDS ORDERED: PANT40TA5 PO (13:44)
[2019-10-17 15:12] LABS: OCCULT BLOOD NEGATIVE (NEGATIVE)
== END 2019-10-17 15:46 | disposition home or self-care (01) ==
LOC: ED 08:06 → EDIP 09:30 → INTOOBSV 09:30 → 3N 10:26 → DCLOUNGE 10-17 15:34
PROVIDERS: ADMIT Internal Medicine; ATTEND Internal Medicine
DX: R10.13 Epigastric pain (principal); R10.33 Periumbilical pain; E86.0 Dehydration; K21.9 Gastro-esophageal reflux disease without esophagitis; K44.9 Diaphragmatic hernia without obstruction or gangrene; I10 Essential (primary) hypertension; G93.41 Metabolic encephalopathy; N39.0 Urinary tract infection, site not specified; E78.5 Hyperlipidemia, unspecified; Z79.82 Long term (current) use of aspirin; Z79.899 Other long term (current) drug therapy; M54.9 Dorsalgia, unspecified; G89.29 Other chronic pain; F41.9 Anxiety disorder, unspecified; Z88.5 Allergy status to narcotic agent; Z88.2 Allergy status to sulfonamides; Z88.8 Allergy status to other drugs, medicaments and biological substances
CPT/HCPCS: 36415; 74177; 80053; 81003; 82272; 83036; 83690; 83735; 84100; 85025; 85610; 87338; 96361; 96365; 96366; 96372; 96375; 96376; 97163; 99284; C9113; G0378; J0696; J1170; J1650; J2270; J2405; J7030; Q9967

== ENCOUNTER → 2019-11-14 | Outpatient (CLI) | payer MEDICARE ==
[~2019-11-14] MED LIST changes: +ASPI-496 PO; +HYDR25TA6 PO; +PANT40TA5 PO
== END | disposition home or self-care (01) ==
LOC: RAD 07:00
PROVIDERS: ATTEND Family Medicine
DX: K21.9 Gastro-esophageal reflux disease without esophagitis (principal); K44.9 Diaphragmatic hernia without obstruction or gangrene; M47.816 Spondylosis without myelopathy or radiculopathy, lumbar region
CPT/HCPCS: 74245

== ENCOUNTER → 2020-10-08 | Outpatient (CLI) | payer MEDICARE ==
[~2020-10-08] MED LIST changes: +ACID1TAB7 PO; -ALEN35TA13 PO; +ALEN35TA49 PO; +ERTA1VIA4 IV; -OXYC15TA PO; +OXYC15TA3 PO; -PANT40TA5 PO; +PANT40TA6 PO; +SUCR1TAB PO
== END | disposition home or self-care (01) ==
LOC: CFH 12:53
PROVIDERS: ATTEND Family Medicine
DX: Z12.31 Encounter for screening mammogram for malignant neoplasm of breast (principal)
CPT/HCPCS: 77063; 77067

== ENCOUNTER 2020-11-11 17:54 | Emergency (ER) | payer MEDICARE ==
[~2020-11-11] VITALS: Ht 149.9 cm; Wt 79.9 kg
--- NOTE | 2020-11-11 18:18 | NUR ---
ERMD AT BEDSIDE FOR EVALUATION.
--- NOTE | 2020-11-11 18:18 | NUR ---
PATIENT WALKED BACK FROM TRIAGE WITH CHIEF C/O COUGH. PER PATIENT SHE STARTED COUGHING 2 DAYS AGO, REPORTS IT A DRY COUGH. PATIENT REPORTS GETTING COUGH SYRUP THAT RELIEVED COUGH. PATIENT STATES "I'M UPSET THEY BROUGHT ME IN HERE." A COUPLE OF DAYS AGO PATIENT REPORTS SHE WENT TO GET UP AND WAS UNABLE TO STAND UP, SHE FELT REALLY WEAK AND HER SPOUSE HAD TO HELP HER UP. PATIENT DENIES FEVER/CHILLS, DENIES CONFUSION. ZAYNAB SLATER, CALL LIGHT WITHIN REACH. Addendum: 11/11/20 at 1835 by NAVARRORARazia PATIENT IS SLOW TO RESPOND TO QUESTIONS, BUT ANSWERS APPROPRIATELY. PATIENT IS A&OX4. PATIENT STARTS TO SAY SOMETHING AND THEN STOPS MID WAY THROUGH HER SENTENCE AND REPEATS HERSELF.
--- NOTE | 2020-11-11 18:32 | NUR ---
PATIENT REPORTS HAVING A RECENT UTI OFF AND ON FOR A FEW MONTHS. PATIENT AMBULATED WITH ASSISTANCE OF THIS RN TO BATHROOM TO LEAVE URINE SAMPLE.
--- NOTE | 2020-11-11 18:42 | NUR ---
PATIENT AMBULATED BACK TO [facility] WITH ASSISTANCE OF THIS RN, UNABLE TO URINATE AT THIS TIME.
[2020-11-11 19:09] LABS: ALANINE AMINOTRANSFERASE 48 U/L (12-78); ALBUMIN 3.3 g/dL (3.4-5.0); ANION GAP 5 mmol/L (5-15); CHLORIDE 107 mmol/L (98-107); CREATININE 1.06 mg/dL (0.55-1.02)
[2020-11-11 19:12] LABS: ALKALINE PHOSPHATASE 144 U/L (45-117); BASOPHILS % (AUTO) 0 % (0-1); BILIRUBIN,TOTAL 0.7 mg/dL (0.2-1.0); EOSINOPHILS % (AUTO) 4 % (1-7); LYMPHOCYTES % (AUTO) 3 % (22-44); MEAN CORPUSCULAR HEMOGLOBIN 29.3 pg (27.0-34.8); MEAN CORPUSCULAR HGB CONC 33.2 g/dL (32.4-35.8); MEAN PLATELET VOLUME 8.6 fL (7.4-10.4); MONOCYTES % (AUTO) 3 % (2-9); NEUTROPHILS % (AUTO) 91 % (42-75); PLATELET COUNT 199 x10^3/uL (130-400); RED BLOOD COUNT 4.23 x10^6/uL (3.82-5.3); RED CELL DISTRIBUTION WIDTH 14.3 % (9.6-15.2); TOTAL PROTEIN 7.2 g/dL (6.4-8.2)
[2020-11-11 19:48] LABS: MD SCAN
[2020-11-11 20:28] LABS: MICROSCOPIC INDICATED
[2020-11-11] MEDS ORDERED: CEFTRIAXONE 1,000 MG ONE (20:53)
[2020-11-11] MEDS ORDERED: CEFTRIAXONE 1,000 MG IM ONE (21:00)
[2020-11-11 21:04] VITALS: BP 108/63
== END 2020-11-11 21:19 | disposition home or self-care (01) ==
LOC: ED 18:16
DX: N39.0 Urinary tract infection, site not specified (principal); R00.9 Unspecified abnormalities of heart beat; R53.1 Weakness; R05 Cough; R51.9 Headache, unspecified; E78.5 Hyperlipidemia, unspecified; I10 Essential (primary) hypertension; Z90.89 Acquired absence of other organs; Z90.49 Acquired absence of other specified parts of digestive tract
CPT/HCPCS: 36415; 70450; 71045; 80053; 81001; 85025; 87086; 93005; 96372; 99285; J0696

== ENCOUNTER 2021-05-24 15:27 | Inpatient (IN) | payer MEDICARE ==
[~2021-05-24] VITALS: Ht 139.7 cm; Wt 57.8 kg
[~2021-05-24 15:27] MED LIST changes: -ASPI-515 PO; +ASPI-963 PO; +HYDR-2214 PO; -HYDR-3240 PO; -LISI40TA PO; +LISI40TA9 PO
--- NOTE | 2021-05-24 15:33 | NUR ---
PT MARCIE FROM [facility] FOR C/O URINARY INCONTINENCE AND LETHARGY. PER PTS , PT HAS BEEN INCONTINENT FOR 2 DAYS WITH LETHARGY AND WEAKNESS. PT GIVEN 500NS TRANSPORTATION ANALYST. PT AXOX4, AMBULATORY TO BR WITH UPRIGHT STEADY GAIT. PT CHANGED INTO GOWN, ALL MONITORS IN PLACE. CALL LIGHT WITHIN REACH.
--- NOTE | 2021-05-24 15:39 | NUR ---
ERP AT BS
--- NOTE | 2021-05-24 15:50 | NUR ---
XRAY AT BS
[2021-05-24 15:57] LABS: MICROSCOPIC INDICATED
[2021-05-24] MEDS ORDERED: SODIUM CHLORIDE FLUSH 10ML SYR IVF ONE (16:00)
[2021-05-24 16:12] LABS: BASOPHILS % (AUTO) 0 % (0-1); EOSINOPHILS % (AUTO) 0 % (1-7); LYMPHOCYTES % (AUTO) 8 % (22-44); MEAN CORPUSCULAR HEMOGLOBIN 26.6 pg (27.0-34.8); MEAN CORPUSCULAR HGB CONC 32.6 g/dL (32.4-35.8); MEAN PLATELET VOLUME 8.6 fL (7.4-10.4); MONOCYTES % (AUTO) 5 % (2-9); NEUTROPHILS % (AUTO) 87 % (42-75); PLATELET COUNT 266 x10^3/uL (130-400); RED BLOOD COUNT 4.19 x10^6/uL (3.82-5.3); RED CELL DISTRIBUTION WIDTH 16.2 % (9.6-15.2)
[2021-05-24 16:14] LABS: ALBUMIN 2.8 g/dL (3.4-5.0); ANION GAP 8 mmol/L (5-15); CALCIUM 8.6 mg/dL (8.5-10.1); CHLORIDE 107 mmol/L (98-107)
[2021-05-24 16:18] LABS: ALANINE AMINOTRANSFERASE 26 U/L (12-78); ALKALINE PHOSPHATASE 98 U/L (45-117); BILIRUBIN,TOTAL 0.8 mg/dL (0.2-1.0); CREATININE 1.15 mg/dL (0.55-1.02); TOTAL PROTEIN 6.5 g/dL (6.4-8.2)
[2021-05-24] MEDS ORDERED: SODIUM CHLORIDE 0.9% 1,000ML IVBOLUS ONE ×2 (16:30→17:00)
--- NOTE | 2021-05-24 17:18 | NUR ---
LAB AT BS FOR BLOOD CULTURES, 2X DRAWN
--- NOTE | 2021-05-24 17:59 | NUR ---
PT AMBULATORY TO BR WITH UPRIGHT STEADY GAIT & BACK TO ROOM. PT RECONNECTED TO ALL MONITORS. IVF/ANTIBX INFUSING. CALL LIGHT WITHIN REACH, BED RAILS UP X2
[2021-05-24] MEDS ORDERED: AZITHROMYCIN 500 MG in SODIUM CHLORIDE 0.9% 250 ML IV ONE (18:00)
--- NOTE | 2021-05-24 18:15 | NUR ---
PT SITTING ON PATRICIA, ON HER PHONE. NADN/VSS. CALL LIGHT WITHIN REACH. ATNIBX INFUSING. PT UPDATED ON POC. NO NEEDS AT THIS TIME.
--- NOTE | 2021-05-24 18:25 | NUR ---
Pt to be admitted to [facility], room 495. Report called to RENETTA.
--- NOTE | 2021-05-24 18:53 | NUR ---
REPORT TO EBONI MOJICA
[2021-05-24] MEDS ORDERED: CEFTRIAXONE 1,000 MG in DEXTROSE 5% 50 ML IVPB ONE ×2 (19:00→20:30)
[2021-05-24 19:38] VITALS: BP 116/61
[2021-05-24] MEDS ORDERED: BISACODYL 10 MG SUPP PR PRN (20:30)
[2021-05-24] MEDS ORDERED: MELATONIN 5 MG TABLET PO PRN (21:00)
[2021-05-24] MEDS: SODIUM CHLORIDE 0.9% 1,000 ML IV SCH (21:35)
[2021-05-24] MEDS: HEPARIN 5,000 UNITS/ML, 1ML SQ SCH (21:35)
[2021-05-25 00:09] VITALS: BP 112/79
[2021-05-25] MEDS: HEPARIN 5,000 UNITS/ML, 1ML SQ SCH ×3 (05:28→21:07)
[2021-05-25 05:56] LABS: BASOPHILS % (AUTO) 0 % (0-1); EOSINOPHILS % (AUTO) 0 % (1-7); LYMPHOCYTES % (AUTO) 8 % (22-44); MEAN CORPUSCULAR HEMOGLOBIN 26.8 pg (27.0-34.8); MEAN CORPUSCULAR HGB CONC 33.4 g/dL (32.4-35.8); MEAN PLATELET VOLUME 8.8 fL (7.4-10.4); MONOCYTES % (AUTO) 4 % (2-9); NEUTROPHILS % (AUTO) 87 % (42-75); PLATELET COUNT 244 x10^3/uL (130-400); RED BLOOD COUNT 4.06 x10^6/uL (3.82-5.3); RED CELL DISTRIBUTION WIDTH 16.2 % (9.6-15.2)
[2021-05-25 06:12] LABS: ANION GAP 8 mmol/L (5-15); CALCIUM 8.6 mg/dL (8.5-10.1); CHLORIDE 109 mmol/L (98-107)
[2021-05-25 06:15] LABS: CREATININE 0.68 mg/dL (0.55-1.02)
[2021-05-25] MEDS: SUCRALFATE 1 GM TABLET PO SCH ×3 (06:36→16:11)
[2021-05-25 07:24] VITALS: BP 135/81
[2021-05-25] MEDS: POTASSIUM CHLORIDE 20 MEQ TAB.ER.PRT PO SCH ×2 (07:31→16:11)
[2021-05-25] MEDS: CALCIUM CARBONATE 500 MG TAB.CHEW PO SCH (07:31)
[2021-05-25] MEDS: ASPIRIN 325 MG TABLET EC PO SCH (08:34)
[2021-05-25] MEDS: PANTOPRAZOLE 40MG TABLET PO SCH (08:34)
[2021-05-25] MEDS: GABAPENTIN 400 MG CAPSULE PO SCH ×3 (08:34→21:08)
[2021-05-25] MEDS: MULTIVITAMIN 1 TABLET PO SCH (08:35)
[2021-05-25] MEDS: CHOLECALCIFEROL 1,000 UNIT TABLET PO SCH (08:35)
[2021-05-25] MEDS: OMEGA-3/FISH OIL CAPSULE PO SCH (08:35)
[2021-05-25] MEDS: SODIUM CHLORIDE 0.9% 1,000 ML IV SCH (08:35)
[2021-05-25] MEDS: LISINOPRIL 40 MG TABLET PO SCH (08:35)
[2021-05-25] MEDS ORDERED: HYDROCHLOROTHIAZIDE 25 MG TABLET PO SCH (09:00)
[2021-05-25] MEDS: TEMPLATE NON-FORMULARY MED. (Potassium Gluconate** 595 MG) HOMEMEDPO SCH (09:00)
[2021-05-25] MEDS ORDERED: TEMPLATE NON-FORMULARY MED. (Lutein** 20 MG) PO SCH (09:00)
[2021-05-25] MEDS: TEMPLATE NON-FORMULARY MED. (Diclofenac Sodium (Voltaren) 1 APPLIC) TP SCH (09:00)
[2021-05-25] MEDS ORDERED: MAALOX/HYOSCYAMINE/LIDOCAINE 45 ML BTL PO PRN (09:00)
[2021-05-25] MEDS: ACETAMINOPHEN 325 MG TABLET PO PRN ×3 (11:22→21:07)
[2021-05-25 14:06] VITALS: BP 124/77
[2021-05-25 20:09] VITALS: BP 158/74
[2021-05-25] MEDS: ATORVASTATIN 80 MG TABLET PO SCH (21:07)
[2021-05-25] MEDS: TRAZODONE 150MG TABLET PO SCH (21:08)
[2021-05-25] MEDS: AZITHROMYCIN 500 MG in SODIUM CHLORIDE 0.9% 250 ML IV SCH (21:08)
[2021-05-25] MEDS: CEFTRIAXONE 2 GM in DEXTROSE 5% 50 ML IVPB SCH (22:15)
[2021-05-26 01:10] VITALS: BP 127/80
[2021-05-26] MEDS: SODIUM CHLORIDE 0.9% 1,000 ML IV SCH (04:41)
[2021-05-26] MEDS: HEPARIN 5,000 UNITS/ML, 1ML SQ SCH ×3 (05:06→20:26)
[2021-05-26 05:59] LABS: BASOPHILS % (AUTO) 0 % (0-1); EOSINOPHILS % (AUTO) 2 % (1-7); LYMPHOCYTES % (AUTO) 17 % (22-44); MEAN CORPUSCULAR HEMOGLOBIN 26.5 pg (27.0-34.8); MEAN PLATELET VOLUME 9.1 fL (7.4-10.4); MONOCYTES % (AUTO) 7 % (2-9); NEUTROPHILS % (AUTO) 74 % (42-75); PLATELET COUNT 247 x10^3/uL (130-400); RED BLOOD COUNT 3.97 x10^6/uL (3.82-5.3); RED CELL DISTRIBUTION WIDTH 16.3 % (9.6-15.2)
[2021-05-26 06:07] LABS: CHLORIDE 111 mmol/L (98-107)
[2021-05-26 06:15] LABS: ALANINE AMINOTRANSFERASE 20 U/L (12-78); ALBUMIN 2.6 g/dL (3.4-5.0); ALKALINE PHOSPHATASE 103 U/L (45-117); ANION GAP 8 mmol/L (5-15); BILIRUBIN,TOTAL 0.7 mg/dL (0.2-1.0); CALCIUM 8.8 mg/dL (8.5-10.1); CREATININE 0.55 mg/dL (0.55-1.02); TOTAL PROTEIN 6.8 g/dL (6.4-8.2)
[2021-05-26] MEDS: SUCRALFATE 1 GM TABLET PO SCH ×3 (08:09→16:49)
[2021-05-26] MEDS: POTASSIUM CHLORIDE 20 MEQ TAB.ER.PRT PO SCH ×2 (08:09→16:49)
[2021-05-26] MEDS: HYDROcodone/APAP 5/325 TABLET PO PRN (08:09)
[2021-05-26] MEDS: TEMPLATE NON-FORMULARY MED. (Potassium Gluconate** 595 MG) HOMEMEDPO SCH (08:10)
[2021-05-26] MEDS: TEMPLATE NON-FORMULARY MED. (Diclofenac Sodium (Voltaren) 1 APPLIC) TP SCH (09:00)
[2021-05-26 09:28] VITALS: BP 143/82
[2021-05-26] MEDS: MULTIVITAMIN 1 TABLET PO SCH (10:53)
[2021-05-26] MEDS: GABAPENTIN 400 MG CAPSULE PO SCH ×3 (10:53→20:26)
[2021-05-26] MEDS: OMEGA-3/FISH OIL CAPSULE PO SCH (10:53)
[2021-05-26] MEDS: CALCIUM CARBONATE 500 MG TAB.CHEW PO SCH (10:53)
[2021-05-26] MEDS: PANTOPRAZOLE 40MG TABLET PO SCH (10:53)
[2021-05-26] MEDS: ASPIRIN 325 MG TABLET EC PO SCH (10:53)
[2021-05-26] MEDS: CHOLECALCIFEROL 1,000 UNIT TABLET PO SCH (10:53)
[2021-05-26] MEDS: LISINOPRIL 40 MG TABLET PO SCH (10:53)
[2021-05-26 11:51] VITALS: BP 148/83
[2021-05-26 18:41] VITALS: BP 153/88
[2021-05-26] MEDS: AZITHROMYCIN 500 MG in SODIUM CHLORIDE 0.9% 250 ML IV SCH (20:25)
[2021-05-26] MEDS: TRAZODONE 150MG TABLET PO SCH (20:26)
[2021-05-26] MEDS: ATORVASTATIN 80 MG TABLET PO SCH (20:26)
[2021-05-26] MEDS: ACETAMINOPHEN 325 MG TABLET PO PRN (20:26)
[2021-05-26] MEDS: CEFTRIAXONE 2 GM in DEXTROSE 5% 50 ML IVPB SCH (22:13)
[2021-05-27 01:21] VITALS: BP 146/82
[2021-05-27] MEDS: HEPARIN 5,000 UNITS/ML, 1ML SQ SCH (05:11)
[2021-05-27 05:38] LABS: BASOPHILS % (AUTO) 1 % (0-1); EOSINOPHILS % (AUTO) 4 % (1-7); LYMPHOCYTES % (AUTO) 19 % (22-44); MEAN CORPUSCULAR HEMOGLOBIN 26.7 pg (27.0-34.8); MEAN PLATELET VOLUME 8.5 fL (7.4-10.4); MONOCYTES % (AUTO) 8 % (2-9); NEUTROPHILS % (AUTO) 69 % (42-75); PLATELET COUNT 241 x10^3/uL (130-400); RED CELL DISTRIBUTION WIDTH 16.4 % (9.6-15.2)
[2021-05-27 05:57] LABS: ANION GAP 5 mmol/L (5-15); CALCIUM 8.9 mg/dL (8.5-10.1); CHLORIDE 113 mmol/L (98-107)
[2021-05-27 05:58] LABS: CREATININE 0.57 mg/dL (0.55-1.02)
[2021-05-27] MEDS: CALCIUM CARBONATE 500 MG TAB.CHEW PO SCH (08:40)
[2021-05-27] MEDS: SUCRALFATE 1 GM TABLET PO SCH (08:40)
[2021-05-27] MEDS: CHOLECALCIFEROL 1,000 UNIT TABLET PO SCH (08:40)
[2021-05-27] MEDS: PANTOPRAZOLE 40MG TABLET PO SCH (08:40)
[2021-05-27] MEDS: MULTIVITAMIN 1 TABLET PO SCH (08:40)
[2021-05-27] MEDS: GABAPENTIN 400 MG CAPSULE PO SCH (08:40)
[2021-05-27] MEDS: LISINOPRIL 40 MG TABLET PO SCH (08:40)
[2021-05-27] MEDS: OMEGA-3/FISH OIL CAPSULE PO SCH (08:40)
[2021-05-27] MEDS: POTASSIUM CHLORIDE 20 MEQ TAB.ER.PRT PO SCH (08:40)
[2021-05-27] MEDS: ASPIRIN 325 MG TABLET EC PO SCH (08:40)
[2021-05-27] MEDS: TEMPLATE NON-FORMULARY MED. (Potassium Gluconate** 595 MG) HOMEMEDPO SCH (08:42)
[2021-05-27] MEDS: TEMPLATE NON-FORMULARY MED. (Diclofenac Sodium (Voltaren) 1 APPLIC) TP SCH (08:42)
[2021-05-27] MEDS: HYDROcodone/APAP 5/325 TABLET PO PRN (08:43)
[2021-05-27 09:37] VITALS: BP 167/98
[2021-05-27] MEDS ORDERED: CEFD300C37 PO (09:37)
[2021-05-27] MEDS ORDERED: AZIT250T PO (09:37)
== END 2021-05-27 12:50 | disposition home or self-care (01) | DRG 871 ==
LOC: ED 17:57 → EDIP 18:00 → 4EST 19:40
PROVIDERS: ADMIT Hospitalist; ATTEND Family Medicine
DX: A41.9 Sepsis, unspecified organism (principal); J15.9 Unspecified bacterial pneumonia; J96.01 Acute respiratory failure with hypoxia; N17.9 Acute kidney failure, unspecified; D50.9 Iron deficiency anemia, unspecified; E78.5 Hyperlipidemia, unspecified; E87.6 Hypokalemia; I10 Essential (primary) hypertension; K21.9 Gastro-esophageal reflux disease without esophagitis; R32 Unspecified urinary incontinence; R65.20 Severe sepsis without septic shock; Z66 Do not resuscitate; G89.29 Other chronic pain; M54.9 Dorsalgia, unspecified; Z88.2 Allergy status to sulfonamides; Z90.49 Acquired absence of other specified parts of digestive tract; Z96.653 Presence of artificial knee joint, bilateral; Z88.8 Allergy status to other drugs, medicaments and biological substances
CPT/HCPCS: 36415; 71045; 80048; 80053; 81001; 83605; 85025; 87040; 87086; 96361; 96365; 96375; G0378; J0456; J0696; J1644; J7030; J7050